=== PATIENT | female | born 1965 | race Caucasian/White ===

== ENCOUNTER → 2016-07-02 09:23 | Outpatient (CLI) | payer BC, MEDICARE ==
[2014-06-25 10:06] VITALS: BMI 25.4
[~2016-07-02 09:23] MED LIST: ACETAMINOPHEN500 M1 PO; ACIDOPHILUS LAC1 CAP PO; ALDACTONE25 MG PO; ALTACE2.5 MG PO; BAYER CHEWABLE81 MG PO; CO Q-10200 MG PO; COREG 3.1253.125 MG PO; COREG12.5 MG PO; CYMBALTA30 MG PO; EFFIENT5 MG PO; FISH OIL 1,0001 CA1 PO; GLUCOPHAGE500 MG PO; GLUCOSAMINE MSM; LANOXIN125 MCG PO; LASIX20 MG PO; LASIX40 MG PO; LEVSIN/ANASP0.125 MG PO; LIBRAX CAPSULE1 CAP PO; LINZESS145 MCG PO; MIRALAX17 GM PO; NITROQUICK0.4 MG SL; OSTEO BI-FLEX1 EAC1 PO; POTASSIUM CHLOR8 ME1 PO; PRAVACHOL80 MG PO; PRILOSEC20 MG PO; PROTONIX40 MG PO; RESTORIL15 MG PO; STERAPRED 5MG 125 MG PO; SYNTHROID75 MCG PO; TOPROL XL50 MG PO; TRIGLIDE160 MG PO; ULTRACET TABLET1 TAB PO
== END | disposition home or self-care (01) ==
LOC: D.US 09:23
DX: I70.219 Atherosclerosis of native arteries of extremities with intermittent claudication, unspecified extremity (principal); I25.10 Atherosclerotic heart disease of native coronary artery without angina pectoris

== ENCOUNTER → 2016-09-03 12:01 | Day surgery (SDC) | payer BC, MEDICARE ==
[~2016-09-03] VITALS: Ht 172.7 cm; Wt 77.3 kg
--- NOTE | ~2016-09-03 | OP ---
PATIENT NAME: SIDNEY EMERSON MEDICAL RECORD: [id number] :65 LOCATION:D.OPS ADMISSION DATE: SURGEON: CHELLY THORNE DO DATE OF OPERATION: 09/03/2016 PROCEDURE: Colonoscopy with polypectomy. INDICATIONS: Personal history of colonic polyps and a personal history of Hodgkin's lymphoma. SCOPE: Newdea video pediatric colonoscope. MEDICATIONS: Propofol 910 mg IV per anesthesia. WITHDRAWAL TIME: 40 minutes. ESTIMATED BLOOD LOSS: Minimal. COMPLICATIONS: None. FINDINGS: Informed consent was given. The patient was made comfortable with the above medication. After reaching an adequate level of sedation by slow IV push, the patient was placed on her left side. A digital rectal examination was performed and was normal. The endoscope was then advanced under direct visualization through the rectum to the cecum, with visualization of the appendiceal orifice and ileocecal valve. The scope was slowly withdrawn and the mucosa was carefully examined. There were multiple polyps on this examination. All polyps ranged in size from 2 mm to 8 mm in size. There was a variety of sessile and flat lesions. There was 1 polyp in the cecum, which was removed with cold forceps. All remaining polyps were removed with hot forceps. There were 3 total polyps in the ascending colon, 13 polyps in the transverse colon, 5 polyps in the descending colon and 3 polyps in the sigmoid colon. All polyps were completely removed and retrieved. The scope was withdrawn from the patient. The patient tolerated the procedure well and there were no complications. IMPRESSION: Twenty-five total polyps removed as described above. PLAN AND RECOMMENDATIONS: 1. Discharge home when recovery parameters are met. 2. Continue current diet. 3. Continue current medications. 4. Recall colonoscopy in 1 year. TRANSINT:[id number] Voice Confirmation ID: [id number] DOCUMENT ID: [id number] CHELLY THORNE DO CC: [id number] DICTATION DATE: 09/03/16 1515 COMMERCIAL PROJECT MANAGER: 09/04/16 0249 [facility] 09/03/[address] [address]
[2016-09-03 12:41] VITALS: BP 142/66; Ht 172.7 cm; Wt 77.3 kg
[2016-09-03 13:49] LABS: HEMATOCRIT 43.3 % (36.0-48.0); HEMOGLOBIN 13.3 g/dL (12-16); MCH 24.9 pg (26.0-34.0); MCHC 30.7 g/dL (31.0-37.0); MCV 80.9 fL (80.0-100.0); MEAN PLATELET VOLUME 9.5 fL (7.4-10.4); RBC 5.35 10x6/uL (4.00-5.40); RDW 15.2 % (11.5-14.5)
[2016-09-03 14:04] LABS: ANION GAP 16.3 mmol/L (8-16); CARBON DIOXIDE 28.1 mmol/L (21.0-32.0); CREATININE - SERUM 0.9 mg/dL (0.6-1.3); POTASSIUM - SERUM 4.4 mmol/L (3.5-5.1)
--- NOTE | 2016-09-03 16:33 | NUR ---
1615-PATIENT ESCORTED OUT BY RN ACCOMPANIED BY .
== END | disposition home or self-care (01) ==
LOC: D.OPS 12:01
PROVIDERS: Anesthesiology
DX: K63.5 Polyp of colon (principal); D12.3 Benign neoplasm of transverse colon; Z85.71 Personal history of Hodgkin lymphoma; Z01.812 Encounter for preprocedural laboratory examination

== ENCOUNTER → 2016-09-11 13:06 | Outpatient (CLI) | payer BC, MEDICARE ==
[2016-09-03 12:41] VITALS: BMI 25.9
== END | disposition home or self-care (01) ==
LOC: D.MRI 13:06 → EDSTATUS 14:00 → D.MRI 14:00
DX: M54.5 Low back pain (principal)

== ENCOUNTER → 2016-09-25 08:35 | Outpatient (CLI) | payer BC, MEDICARE ==
[2016-09-03 12:41] VITALS: BMI 25.9
== END | disposition home or self-care (01) ==
LOC: D.US 08:35
DX: R93.8 Abnormal findings on diagnostic imaging of other specified body structures (principal)

== ENCOUNTER → 2016-09-30 07:41 | Outpatient (CLI) | payer BC, MEDICARE ==
[2016-09-03 12:41] VITALS: BMI 25.9
== END ==
LOC: D.MRI 07:41
DX: R93.8 Abnormal findings on diagnostic imaging of other specified body structures (principal)

== ENCOUNTER → 2016-10-23 11:09 | Outpatient (CLI) | payer BC, MEDICARE ==
[2016-09-03 12:41] VITALS: BMI 25.9
== END | disposition home or self-care (01) ==
LOC: D.US 11:09
DX: N83.209 Unspecified ovarian cyst, unspecified side (principal)

== ENCOUNTER → 2016-12-15 09:35 | Outpatient (CLI) | payer BC, MEDICARE ==
[2016-09-03 12:41] VITALS: BMI 25.9
== END | disposition home or self-care (01) ==
LOC: D.RT 09:35
DX: J45.909 Unspecified asthma, uncomplicated (principal)

== ENCOUNTER 2017-10-27 07:15 | Day surgery (SDC) | payer BC, MEDICARE ==
[~2017-10-27] VITALS: Ht 172.7 cm; Wt 77.1 kg
--- NOTE | ~2017-10-27 | OP ---
PATIENT NAME: SIDNEY EMERSON MEDICAL RECORD: [id number] :65 LOCATION:D.OPS ADMISSION DATE: SURGEON: CHELLY THORNE DO DATE OF OPERATION: 10/27/2017 PROCEDURE: Colonoscopy with polypectomy. INDICATIONS FOR PROCEDURE: Personal history of colonic polyps and a personal history of Hodgkin lymphoma. SCOPE: Olympus video pediatric colonoscope. MEDICATIONS: Propofol 440 mg IV per anesthesia. WITHDRAWAL TIME: 27 minutes. ESTIMATED BLOOD LOSS: Minimal. COMPLICATIONS: None. FINDINGS: Informed consent was given. The patient was made comfortable with the above medication. After reaching an adequate level of sedation by slow IV push, the patient was placed on her left side. A digital rectal examination was performed and was normal. The endoscope was then advanced under direct visualization through the rectum to the cecum, confirmed by the presence of the appendiceal orifice and ileocecal valve. The endoscope was slowly withdrawn and mucosa was carefully examined. The prep quality was good. There were a total of 19 polyps visualized on today's examination. The polyps were located in the ascending colon, transverse colon, descending colon, and sigmoid colon. They were all benign appearing and sessile, and ranged in size from 2 to 7 mm in diameter. They were all removed using hot forceps completely and retrieved. Retroflexion was performed in the rectum with a normal appearing rectal wall. There were no diverticula or other abnormalities found on today's examination. The endoscope was withdrawn from the patient. The patient tolerated the procedure well and there were no complications. IMPRESSION: 1. Multiple polyps as described above, removed using hot forceps. 2. Otherwise, normal colonoscopy. PLAN AND RECOMMENDATIONS: 1. Discharge home when recovery parameters are met. 2. Follow up biopsy specimen results. 3. High fiber diet. 4. Continue current medications. 5. Recall colonoscopy in 1 year for continued surveillance based on her personal history of polyps and by definition serrated polyposis syndrome. TRANSINT:[id number] Voice Confirmation ID: [id number] DOCUMENT ID: [id number] OPERATIVE REPORT [id number] SIDNEY EMERSON CHELLY THORNE DO at 1148 CC: [id number] DICTATION DATE: 10/27/17 1116 [employer]: 10/27/17 1226 [facility] 10/27/[address] [place] [address]
[2017-10-27 07:34] LABS: BASOPHILS 0.5 % (0-2); EOSINOPHILS 2.7 % (0-7); HEMATOCRIT 38.6 % (36.0-48.0); HEMOGLOBIN 12.7 g/dL (12-16); IMMATURE GRANULOCYTES 0.6 % (0-5); LYMPHOCYTES 30.4 % (15-50); MCH 29.2 pg (26.0-34.0); MCHC 32.9 g/dL (31.0-37.0); MCV 88.7 fL (80.0-100.0); MONOCYTES 10.1 % (2-11); NEUTROPHILS 55.7 % (40-80); RBC 4.35 10x6/uL (4.00-5.40); RDW 13.3 % (11.5-14.5)
[2017-10-27 07:37] LABS: PLATELET COUNT 409 10x3/uL (130-400)
[2017-10-27 07:50] LABS: CALC OSMOLALITY 281 mosm/kg (275-300); CALCIUM 9.8 mg/dL (8.5-10.1); CARBON DIOXIDE 31.3 mmol/L (21.0-32.0); CHLORIDE - SERUM 103 mmol/L (98-107); CREATININE - SERUM 0.8 mg/dL (0.6-1.3); GLUCOSE 111 mg/dL (74-106); POTASSIUM - SERUM 4.1 mmol/L (3.5-5.1); SODIUM 141 mmol/L (136-145); UREA NITROGEN 13 mg/dL (7-18); eGFR NON AFRICAN AMERICAN 80 mL/min (90-120)
[2017-10-27 09:31] VITALS: BP 114/59; Ht 172.7 cm; Wt 77.1 kg
== END 2017-10-27 12:51 | disposition home or self-care (01) ==
LOC: D.OPS 07:15
PROVIDERS: Anesthesiology
DX: K63.5 Polyp of colon (principal)

== ENCOUNTER 2017-11-18 13:07 | Outpatient (CLI) | payer BC, MEDICARE ==
[~2017-11-18] VITALS: Ht 172.7 cm; Wt 77.3 kg
--- NOTE | ~2017-11-18 | OP ---
PATIENT NAME: SIDNEY EMERSON MEDICAL RECORD: [id number] :65 LOCATION:D.CAT ADMISSION DATE: SURGEON: YOVANA HOGUE MD DATE OF OPERATION: 11/18/2017 PROCEDURES: 1. PTCA stent RCA. 2. Intravascular ultrasound RCA. 3. Intravascular ultrasound LAD. 4. Intravascular ultrasound left main. 5. Left heart catheterization. 6. Selective coronary angiography. 7. Left ventriculogram. INDICATION: Angina and coronary artery disease. PROCEDURE IN DETAIL: After informed consent was obtained and after detailed description of risks, benefits as well as alternative therapies, the patient elected to proceed with angiogram and angioplasty. The right radial area was prepped and draped in normal sterile fashion. Right radial artery was cannulated via modified Seldinger technique with placement of 6-Hebrew sheath. All catheters exchanged through this sheath. FINDINGS: 1. The left main has a previously placed stent. This has no significant in-stent restenosis confirmed by intravascular ultrasound. 2. The left anterior descending has moderate irregularities, but no flow-limiting stenosis confirmed by intravascular ultrasound. 3. The right coronary has previously placed stents. There is an area of 70% to 80% in-stent restenosis in the mid vessel confirmed by intravascular ultrasound. PTCA STENT OF THE RCA: The stent used was a 3.5 x 38 mm Hector taken to 17 atmospheres. Result was 0% residual stenosis. OVERALL IMPRESSION: Successful percutaneous transluminal coronary angioplasty stent of the right coronary artery going from 80% initial stenosis confirmed by intravascular ultrasound to 0% residual stenosis. TRANSINT:[id number] Voice Confirmation ID: [id number] DOCUMENT ID: [id number] YOVANA HOGUE MD at 1843 CC: [id number] DICTATION DATE: 11/18/17 1638 AGILE TEST LEAD: 11/18/17 1927 DEP CLI 11/18/17 [facility] [address] [place] [address]
--- NOTE | ~2017-11-18 | HP ---
PATIENT: SIDNEY EMERSON MEDICAL RECORD: [id number] ACCOUNT: [id number] LOCATION:LINDA : 65 ADMISSION DATE: 11/18/17 HISTORY AND PHYSICAL EXAMINATION DIAGNOSES: 1. Unstable angina. 2. Coronary artery disease. 3. Abnormal ECG. 4. Hypertension. 5. Hyperlipidemia. 6. Valvular heart disease, aortic stenosis, aortic insufficiency. HISTORY OF PRESENT ILLNESS: Mrs. Emerson presents with increasing episodes of chest pain and chest discomfort compatible with angina. Her EKG is abnormal with a left bundle-branch block, but this is not new and it is unchanged from previous EKGs. She continues to have episodes of chest pain. She is status post PTCA stent of her left main and RCA in the past. PHYSICAL EXAMINATION: GENERAL APPEARANCE: Well-nourished, well-developed, appears stated age. Level of distress, comfortable. PSYCHIATRIC: Mental status, alert, normal affect. Orientation, oriented to time, place and person. EYES: Lids and conjunctiva, noninjected. No discharge, no pallor. ENT: Lips, teeth, gums, normal dentition. Oropharynx, no cyanosis, no pallor. NECK: Carotid arteries, bilateral normal upstroke, no bruits, no thrills. JUGULAR VEINS: No jugular venous pressure or distention. CERVICAL LYMPH NODES: Nontender, nonenlarged. THYROID: Not enlarged. Nontender. No nodules. LUNGS: Respiratory effort, unlabored. CHEST: Normal curvature. No thoracic deformity. No chest wall tenderness. Percussion, resonant. Auscultation, clear. No wheezes, no rales, no rhonchi. CARDIOVASCULAR: Precordial exam, nondisplaced. No heaves or pericardial thrills. Rate and rhythm, regular. Heart sounds, normal S1, normal S2. No S3, no gallop, no rub. Systolic murmur, not heard. Diastolic murmur, not heard. EXTREMITIES: No cyanosis, no edema. Peripheral pulses, full and equal in all extremities, except as noted. No bruits appreciated. ABDOMEN: Soft, nondistended. Normal aorta. No bruit. Nontender. No masses. Liver, nontender, no hepatomegaly. Spleen, nontender, no splenomegaly. MUSCULOSKELETAL: No joint tenderness. No joint swelling. No erythema. NEUROLOGICAL: Normal gait, normal strength, normal tone. SKIN: Warm and dry. OVERALL IMPRESSION: Unstable angina. We will proceed with coronary angiography. Further care depends upon the findings of the angiography. TRANSINT:[id number] Voice Confirmation ID: [id number] DOCUMENT ID: [id number] HISTORY AND PHYSICAL [id number] KI,YOVANA ENNIS MD at 1843 CC: [id number] DICTATION DATE: 11/18/17 1639 [employer]IO EQUIPMENT INSTALLER: 11/18/17 1645 DEP CLI 11/18/17 [facility] [id number] [place] [address]
--- NOTE | ~2017-11-18 | HEMODYNAMI ---
PATIENT:SIDNEY EMERSON MEDICAL RECORD: [id number] : 65 LOCATION:[facility] ADMISSION DATE: 11/18/17 Generatedon:11/18/201716:46 Patient name: SIDNEY EMERSON Patient #: [id number] SSN: : 1965 Date of study: 11/18/2017 Page: Of Hemodynamic Procedure Report Patient Data Patient Demographics Procedure consent was obtained First Name: SIDNEY Gender: Female Last Name: KI : 1965 Middle Initial: C Age: 52 year(s) Patient #: [id number] Race: Unknown Additional ID: [id number] Contact details [address]: [address] [place] [address] State: [place] City: [place] Zip code: [address] Admission Admission Data Admission Date: 11/18/2017 Admission Time: 13:07 Procedure Procedure Types Cath Procedure Diagnostic Procedure LHC LHC w/Coronaries FFR/IVUS Intra-Coronary IVUS Initial Sedation Charges Moderate Sedation up to 15 minutes PCI Procedure Coronary Stent Coronary Stent Initial Procedure Description Procedure Date Procedure Date: 11/18/2017 Procedure Start Time: 16:08 Procedure End Time: 16:44 Procedure Staff Name Function Jerardo Marquez MD Performing Physician Gila Powell RT Scrub Angel Ziegler RN Nurse Vikas Allred RT Monitor Yoshi Tay RT Mrp Controller Procedure Data Cath Procedure Fluoroscopy Diagnostic fluoroscopy Total fluoroscopy Time: time: 10.9 min 10.9 min Diagnostic fluoroscopy Total fluoroscopy dose: 831 dose: 831 mGy mGy Contrast Material Contrast Material Type Amount (ml) Isovue 300 90 Entry Location Entry Primary Successful Side Size Upsize Upsize Entry Closure Arita ccessful Closure Location (Fr) 1 (Fr) 2 (Fr) Remarks Device Remarks Radial Right 6 Fr Mechanical artery Short Compression Estimated blood loss: 10 ml Diagnostic catheters Device Type Used For End Catheter Placement DIAGNOSTIC [place] 110cm 5 Procedure Fr catheter ([id number]) Procedure Complications No complications Procedure Medications Medication Administration Route Dosage Heparin Drip 1000 units/hr (99182tupsk/250 D5W) Zofran I.V. 4 mg Oxygen etCO2 Nasal cannula 2 l/min Lidocaine 2% added to field 20 Heparin Flush Bag added to field 2 bags (1000units/500ml NS) 0.9% NaCl I.V. 100 ml/hr Versed I.V. 1 mg Fentanyl I.V. 50 mcg Lopressor I.V. 5 mg Versed I.V. 1 mg Fentanyl I.V. 50 mcg Radial Cocktail I.A. 1 syringe (Verapomil 2mg/Nitro 400mcg/Heparin 1500units) Lopressor I.V. 5 mg Fentanyl I.V. 50 mcg Versed I.V. 1 mg Versed I.V. 1 mg Fentanyl I.V. 50 mcg Hemodynamics Rest Heart Rate: 111 (bpm) Pressure Samples Time Site Value (mmHg) Purpose Heart Use Rate(bpm) 16:12 AO 120/67(90) Pullback 101 16:12 LV 133/4,2 Pullback 101 Gradients Valve Time Site 1 Site 2 Mean SEP/DFP Peak To Heart Use (mmHg) (sec/min) Peak Rate (mmHg) (bpm) Aortic 16:12 LV AO 12 23 13 101 133/4,2 120/67(90) Calculations Valve P-P Mean Valve Index Valve Source Name Gradient Area Flow (cm2) Aortic 13 12 13 12 Snapshots Pre Cath Intra NCS Post Cath Vital Signs Time Heart Resp SPO2 etCO2 NIBP (mmHg) Rhythm Pain Sedation Rate (ipm) (%) (mmHg) Status Level (bpm) 15:56:37 110 15 98 0 160/77(113) NSR 0 (11) 10(A) , No pain 16:00:55 107 16 94 32.2 152/75(108) NSR 0 (11) 10(A) , No pain 16:05:09 107 17 94 36 149/79(107) NSR 0 (11) 10(A) , No pain 16:09:25 107 13 97 34.5 154/76(99) NSR 0 (11) 10(A) , No pain 16:13:37 99 15 95 36.7 133/70(93) NSR 0 (11) 9(A) , No pain 16:17:49 98 22 94 37.5 126/73(94) NSR 0 (11) 9(A) , No pain 16:21:58 96 11 96 36.7 132/72(92) NSR 0 (11) 9(A) , No pain 16:26:10 95 12 96 41.2 132/70(85) NSR 0 (11) 10(A) , No pain 16:30:22 96 20 94 35.2 118/71(88) NSR 0 (11) 10(A) , No pain 16:34:28 97 18 94 36.7 134/71(96) NSR 0 (11) 10(A) , No pain 16:38:38 97 12 96 35.2 129/74(94) NSR 0 (11) 10(A) , No pain 16:42:50 97 21 96 38.2 120/65(88) NSR 0 (11) 10(A) , No pain Medications Time Medication Route Dose Verified Delivered Reason Notes Effectiveness by by 15:55:51 Heparin Drip I.V. drip- 1000 Jerardo Ortiz Per (57296qbqmr/250 discontinued units/hr Jimmy Ziegler RN physician D5W) 15:55:58 Zofran I.V. 4 mg Jerardo Oritz Per Jimmy Ziegler RN physician 16:02:18 Oxygen etCO2 Nasal 2 l/min Jerardo Ortiz used for cannula Jimmy Ziegler RN procedure 16:02:25 Lidocaine 2% added to 20ml Jerardo Motarey for local field vial Jimmy Marquez MD anesthetic 16:02:31 Heparin Flush added to 2 bags Jerardo Kurtz used for Bag field Jimmy Marquez MD procedure (1000units/500ml NS) 16:02:40 0.9% NaCl I.V. 100 Jerardo Ortiz Per ml/hr Jimmy Ziegler RN physician 16:09:16 Versed I.V. 1 mg Jerardo Ortiz for sedation Jimmy Zeigler RN 16:09:21 Fentanyl I.V. 50 mcg Jerardo Ortiz for sedation Jimmy Zieglre RN 16:09:59 Radial Cocktail I.A. 1 Jerardo Kurtz for (Verapomil syringe Jimmy Marquez MD vasodilation 2mg/Nitro 400mcg/Heparin 1500units) 16:10:27 Lopressor I.V. 5 mg Jerardo Ortiz Per Jimmy Ziegler RN physician 16:11:50 Versed I.V. 1 mg Jerardo Ortiz for sedation Jimmy Ziegler RN 16:11:55 Fentanyl I.V. 50 mcg Jerardo Ortiz for sedation Jimmy Ziegler RN 16:17:22 Lopressor I.V. 5 mg Jerardo Ortiz Per Jimmy Ziegler RN physician 16:20:07 Fentanyl I.V. 50 mcg Jerardo Ortiz for sedation Jimmy Ziegler RN 16:22:56 Versed I.V. 1 mg Jerardo Ortiz for sedation Jimmy Ziegler RN 16:31:16 Versed I.V. 1 mg Jerardo Appleie for sedation Jimmy Ziegler RN 16:31:19 Fentanyl I.V. 50 mcg Jerardo Ortiz for sedation Jimmy Ziegler RN Procedure Log Time Note 15:31:28 Signed procedure consent form obtained from patient. 15:31:30 Time tracking: Regular hours (M-F 7:00 - 5:00) 15:31:37 Plan of Care:Hemodynamics will remain stable., Cardiac rhythm will remain stable., Comfort level will be maintained., Respiratory function will remain adequate., Patient/ family verbilizes understanding of procedure., Procedure tolerated without complication., Recovers from procedure without complications.. 15:32:05 H&P Date Dictated: 11/18/2017 ER History on chart.. 15:33:10 Yoshi COPE(R) sent for patient. Start room use. 15:46:22 Patient received from ED to CCL 2 Alert and oriented. Tansferred to table in Supine position. 15:46:23 Warm blankets applied, and maricel hugger turned on for patient comfort. 15:46:24 Correct patient and procedure confirmed by team. 15:46:25 ECG and BP/O2 sat monitors applied to patient. 15:55:30 Vital chart was started 15:55:32 Baseline sample Acquired. 15:55:36 Rhythm: sinus rhythm 15:55:38 Full Disclosure recording started 15:55:40 Pre-procedure instructions explained to patient. 15:55:41 Pre-op teaching completed and patient verbalized understanding. 15:55:45 Family in waiting room. 15:55:46 Patient NPO since Midnight. 15:55:51 Heparin Drip (33343ltrhx/250 D5W) 1000 units/hr I.V. drip- discontinued was administered by Buffie Ziegler RN; Per physician; 15:55:53 Is the patient allergic to Iodine/contrast media? No. 15:55:55 Is patient on blood thinner?Yes 15:55:58 Zofran 4 mg I.V. was administered by Angel Ziegler RN; Per physician; 15:55:58 ACC The patient was administered the following blood thiners within the last 24 hours: ACCEffient 15:56:04 Patient diabetic? Yes. 15:56:05 If diabetic: On Metformin? Yes 15:56:07 If on Metformin: Last Dose? 11/17/2017 15:56:55 Previous problem with sedation/anesthesia? Yes some nausea 15:56:57 Snore? Yes 15:56:59 Sleep apnea? No 15:57:00 Deviated septum? No 15:57:17 Opens mouth fully? Yes 15:57:17 Sticks out tongue? Yes 15:57:20 Airway obstruction? No ? 15:57:22 Dentures? No ? 15:57:27 Pre procedure: right dorsailis pedis pulse 1+ Palpable, but thready & weak; easily obliterated 15:57:28 Modified Klaus's test Ulnar < 7 seconds 15:57:29 Patient pain scale 0/10 ?. 15:57:37 IV patent on arrival in right forearm with 0.9% NaCl at O. 15:57:39 Lab results completed and on chart. 15:57:47 Right Radial & Right Groin area was prepped with chlora-prep and draped in sterile fashion 15:58:57 Alarms reviewed by R. N. 15:58:57 Sharps counted by scrub and verified by R.N. 15:59:01 Use device set Radial Dx or PCI 15:59:03 Tegaderm 4 x 4 (1626W) opened to sterile field. 15:59:04 ACIST Manifold (71008) opened to sterile field. 15:59:07 ACIST Hand Control (52328) opened to sterile field. 15:59:10 ACIST Syringe (70549) opened to sterile field. 15:59:10 Medline Cath Pack ([id number]) opened to sterile field. 15:59:11 Bag Decanter () opened to sterile field. 15:59:31 DIAGNOSTIC WIRE .035 260cm J wire (589577) opened to sterile field. 15:59:32 MBrace Wrist Support (390002747) opened to sterile field. 15:59:33 SHEATH 6Fr Prelude Radial ([id number]) opened to sterile field. 16:02:18 Oxygen 2 l/min etCO2 Nasal cannula was administered by Angel Ziegler RN; used for procedure; 16:02:25 Lidocaine 2% 20ml vial added to field was administered by Jerardo Marquez MD; for local anesthetic; 16:02:31 Heparin Flush Bag (1000units/500ml NS) 2 bags added to field was administered by Jerardo Marquez MD; used for procedure; 16:02:40 0.9% NaCl 100 ml/hr I.V. was administered by Angel Ziegler RN; Per physician; 16:03:04 Zero performed for pressure channel P1 16:05:37 Physician arrived 16:05:37 --------ALL STOP TIME OUT------ 16:05:38 Final Timeout: patient, procedure, and site verified with staff and physician. All members of the team are in agreement. 16:05:41 Right Radial & Right Groin site verified by team. 16:05:44 Physical assessment completed. ASA score P 2 - A patient with mild systemic disease as per Jerardo Marquez MD. 16:05:47 Sedation plan: IV Moderate Sedation Medication:Versed, Fentanyl 16:08:45 Procedure started. 16:08:56 Local anesthetic to right radial artery with Lidocaine 2% by Jerardo Marquez MD.INITIAL ACCESS ONLY 16:09:06 A 6 Fr Short sheath was inserted into the Right Radial artery 16:09:16 Versed 1 mg I.V. was administered by Angel Ziegler RN; for sedation; 16:09:21 Fentanyl 50 mcg I.V. was administered by Angel Ziegler RN; for sedation; 16:09:59 Radial Cocktail (Verapomil 2mg/Nitro 400mcg/Heparin 1500units) 1 syringe I.A. was administered by Jerardo Marquez MD; for vasodilation; 16:10:27 Lopressor 5 mg I.V. was administered by Angel Ziegler RN; Per physician; 16:11:04 A DIAGNOSTIC [place] 110cm 5 Fr catheter (389832) was advanced over the wire and used for Procedure. 16:11:50 Versed 1 mg I.V. was administered by Angel Ziegler RN; for sedation; 16:11:51 LV gram done using FLEMING 16:11:53 Injector settings: Ml/sec: 5, Volume: 15, 16:11:55 Fentanyl 50 mcg I.V. was administered by Angel Ziegler RN; for sedation; 16:12:07 EF : 60 % 16:12:33 LCA angiography performed. 16:15:09 CHOICE PT Extra Support 182cm wire ([id number]) opened to sterile field. 16:15:10 INFLATOR Merit BasixCompak (TX4249) opened to sterile field. 16:15:44 RCA angiography performed. 16:15:49 Ringling Minto Eagleye IVUS Catheter (73936G) opened to sterile field. 16:17:06 GUIDE 6FR XBLAD 3.5 catheter (26519555) opened to sterile field. 16:17:22 Lopressor 5 mg I.V. was administered by Angel Ziegler RN; Per physician; 16:18:41 Guide Catheter removed. unable to cannulate vessel. 16:19:42 GUIDE 6FR JL 3.5 guide catheter (VB7HL86) opened to sterile field. 16:19:55 6 Fr jl 3.5 guide catheter was inserted over the wire 16:20:07 Fentanyl 50 mcg I.V. was administered by Angel Ziegler RN; for sedation; 16:21:42 choice pt es wire advanced. 16:22:50 Wire removed. 16:22:54 Guide Catheter removed. unable to get back-up support 16:22:56 Versed 1 mg I.V. was administered by Angel Ziegler RN; for sedation; 16:23:01 GUIDE 6Fr [place] 4.0 catheter (817607) opened to sterile field. 16:23:07 6 Fr tiger guide catheter was inserted over the wire 16:24:20 choice pt es wire advanced. 16:25:20 Wire advanced across lesion. 16:25:57 IVUS catheter advanced over wire. 16:27:00 IVUS pass to LAD lesion performed. 16:27:06 IVUS pass to LMCA lesion performed. 16:27:11 IVUS catheter removed over wire. 16:27:47 Wire redirected to rca. 16:28:54 IVUS pass to RCA lesion performed. 16:28:56 IVUS catheter removed over wire. 16:30:51 Place stent Inflation Number: 1 A AMALIA RX 3.5 x 38 stent ([id number]) was prepped and advanced across the Mid RCA. The stent was deployed at 17 ALEXANDRE for 0:10 (min:sec). 16:31:10 Inflation number: 1 The stent balloon was then re-inflated across the Prox RCA to 14 ALEXANDRE for 0:10 (min:sec). 16:31:16 Versed 1 mg I.V. was administered by Angel Ziegler RN; for sedation; 16:31:19 Fentanyl 50 mcg I.V. was administered by Angel Ziegler RN; for sedation; 16:32:05 Stent catheter was removed intact over wire. 16:32:07 Wire removed. 16:32:07 Guide catheter removed. 16:32:11 TR BAND Standard ([id number]) opened to sterile field. 16:32:19 Sheath removed intact; hemostasis achieved with Mechanical Compression to the Right Radial artery. 16:33:37 Procedure ended.(Physican Out) 16:34:52 Fluoroscopy time 10.90 minutes. 16:34:57 Fluoroscopy dose: 831 mGy 16:34:57 Flurop Dose total: 831 16:35:09 Contrast amount:Isovue 300 90ml. 16:35:11 Sharps counted by scrub and verified by R.N. 16:35:13 TR band inflated with 12cc of air. 16:35:14 Insertion/operative site no bleeding no hematoma. 16:36:38 Post right radial artery:stable, soft, clean and dry 16:36:40 Post Procedure Pulses reassessed and unchanged 16:36:42 Post-procedure physical assessment completed. ASA score P 2 - A patient with mild systemic disease as per Jerardo Marquez MD. 16:36:47 Post procedure rhythm: unchanged. 16:37:05 Estimated blood loss: 10 ml 16:37:07 Post procedure instruction explained to patient.Patient verbalizes understanding. 16:40:22 Patient needs reinforcement of post procedure teaching. 16:40:52 Procedure type changed to Cath procedure, Diagnostic procedure, LHC, LHC w/Coronaries, FFR/IVUS, Intra-Coronary IVUS Initial, Sedation Charges, Moderate Sedation up to 15 minutes, PCI procedure, Coronary Stent, Coronary Stent Initial 16:43:38 Procedure and supply charges have been captured, reviewed, submitted and are correct. 16:44:11 Procedure Complication : No complications 16:44:13 Vital chart was stopped 16:44:13 See physician's report for complete and final results. 16:44:16 Report given to Pre/Post Procedure Room. 16:44:53 Patient transfered to PCU with Stretcher. 16:44:54 Procedure ended. 16:44:54 Full Disclosure recording stopped 16:44:59 End room use (Document Last) Intervention Summary Intervention Notes Time ActionType Lesion and Equipment Used Action# Pressure Duration Attributes 16:30:51 Place stent Mid RCA AMALIA RX 3.5 x 1 17 00:10 38 stent ([id number]) 16:31:10 Reinflate Prox RCA AMALIA RX 3.5 x 1 14 00:10 stent 38 stent balloon ([id number]) Device Usage Item Name Manufacture Quantity Catalog Number Hospital Part Current Minimal Lot# / Charge Number Stock Stock Serial# Code Tegaderm 4 x 4 3M 1 1626W [id number] 765049 [id number] 5 (1626W) ACIST Manifold Acist 1 67107 218972 165983 145404 5 (70107) [employer] ACIST Hand Acist 1 64173 425329 590366 079831 5 Control (77345) [employer] ACIST Syringe Acist 1 81790 789800 962601 331989 20 (88885) [employer] Inc Medline Cath Cardinal 1 [id number] 194933 75072 447899 5 Pack Health ([id number]) Bag Decanter Microtek 1 2001S 518158 78670 253895 5 (2001S) Medical Inc. DIAGNOSTIC WIRE St [place] 1 507600 802962 372737 624028 30 .035 260cm J wire (657646) MBrace Wrist Advanced 1 140-0250-00 125854 26061 243680 5 Support Vascular (864222060) Dynamics SHEATH 6Fr Merit 1 [id number] 807958 901352 755362 5 Prelude Radial Medical ([id number]) DIAGNOSTIC Terumo 1 96-1039 453894 057143 086474 5 [place] 110cm 5 Fr catheter (810149) CHOICE PT Extra [place] 1 [id number] 418673 050565 903265 5 Support 182cm Scientific wire ([id number]) INFLATOR Merit Merit 1 UQ1771 804650 513093 214002 15 [facility] (TD7361) Ringling Ringling 1 19240Q 000729 916680 569377 8 Minto Eagleye IVUS Catheter (40960C) GUIDE 6FR XBLAD Cardinal 1 [id number] 363807 058736 285418 10 3.5 catheter Health (47675648) GUIDE 6FR JL Medtronic 1 [id number] 287913 24477 609315 1 3.5 guide catheter (PD1BH58) GUIDE 6Fr [place] Terumo 1 40-8511 050023 483276 980403 1 4.0 catheter (763668) AMALIA RX 3.5 x Medtronic 1 [id number] 459530 3353720 879761 5 [id number] 38 stent ([id number]) TR BAND Terumo 1 [id number] 004264 349840 029130 40 Standard ([id number]) Signature Audit [place] Stage Time Signature Unsigned Intra-Procedure 11/18/2017 Vikas Allred 4:46:17 PM RT(R) Signatures Monitor : Vikas Allred RT Signature : Date : Time : [place] [id number] [place] [address]
[2017-11-18 13:19] VITALS: Ht 172.7 cm; Wt 77.3 kg
[2017-11-18] MEDS ORDERED: VICTOZA0.6 MG/0.1 SQ (13:21)
[2017-11-18 14:15] LABS: BASOPHILS 0.2 % (0-2); EOSINOPHILS 3.8 % (0-7); HEMATOCRIT 39.5 % (36.0-48.0); HEMOGLOBIN 13.1 g/dL (12-16); IMMATURE GRANULOCYTES 0.8 % (0-5); LYMPHOCYTES 34.3 % (15-50); MCH 29.2 pg (26.0-34.0); MCHC 33.2 g/dL (31.0-37.0); MCV 88.2 fL (80.0-100.0); MEAN PLATELET VOLUME 9.4 fL (7.4-10.4); MONOCYTES 10.5 % (2-11); NEUTROPHILS 50.4 % (40-80); PLATELET COUNT 429 10x3/uL (130-400); RBC 4.48 10x6/uL (4.00-5.40); RDW 13.4 % (11.5-14.5); WBC 9.2 10x3/uL (4.8-10.8)
[2017-11-18 14:17] LABS: INR 0.96 (0.85-1.17); PROTIME 12.4 SECONDS (11.6-15.0)
[2017-11-18 14:23] LABS: ALBUMIN 3.9 g/dL (3.4-5.0); ALKALINE PHOSPHATASE 50 U/L (46-116); ALT (SGPT) 29 U/L (10-68); BILIRUBIN - TOTAL 0.24 mg/dL (0.2-1.3); CALC OSMOLALITY 272 mosm/kg (275-300); CALCIUM 9.9 mg/dL (8.5-10.1); CARBON DIOXIDE 28.8 mmol/L (21.0-32.0); CHLORIDE - SERUM 103 mmol/L (98-107); CREATININE - SERUM 0.9 mg/dL (0.6-1.3); GLUCOSE 107 mg/dL (74-106); POTASSIUM - SERUM 4.2 mmol/L (3.5-5.1); PROTEIN - SERUM 7.4 g/dL (6.4-8.2); SODIUM 137 mmol/L (136-145); UREA NITROGEN 10 mg/dL (7-18); eGFR NON AFRICAN AMERICAN 70 mL/min (90-120)
[2017-11-18 14:26] LABS: CREATINE KINASE 85 UL (21-215); TROPONIN-I < 0.017 ng/mL (0.000-0.060)
[2017-11-18 20:14] VITALS: BP 110/54
== END 2017-11-18 22:28 | disposition home or self-care (01) ==
LOC: D.M2 13:07 → D.CATH 13:07 → D.ER 13:07 → EDSTATUS 14:32 → D.M2 17:04 → D.CATH 22:28
PROVIDERS: Family Medicine
DX: I25.119 Atherosclerotic heart disease of native coronary artery with unspecified angina pectoris (principal); T82.855A Stenosis of coronary artery stent, initial encounter; Z01.812 Encounter for preprocedural laboratory examination